=== PATIENT | male | born 1970 | race Caucasian/White ===

== ENCOUNTER 2020-02-08 12:08 | Emergency (ER) | payer OTHER ==
--- NOTE | 2020-02-08 13:50 | ER Document Report ---
ED Medical Screen (RME) - General Stated Complaint: HAND NUMBNESS/SWELLING Time Seen by Provider: 02/08/20 13:30 Mode of Arrival: Ambulatory Information source: Patient - HPI Notes: Patient is a 49 y/o male who present with right hand weakness and numbness that began yesterday morning. Patient reports intermittent hand pain and swelling over the 2nd MCP for the past couple of months that has been achy and sharp in nature. He states he had full function of his hand until he woke up on Saturday morning. He currently denies any pain but cannot lift his hand or grasp anything. He denies any numbness or weakness to any other extremities and denies any facial droop, headache, or chest pain. He denies any recent injury. Physical Exam - Vital signs Vitals: Temp Pulse Resp BP Pulse Ox 98.9 F 81 20 159/95 H 96 02/08/20 12:28 02/08/20 12:28 02/08/20 12:28 02/08/20 12:28 02/08/20 12:28 - Extremities Notes: 2/5 strength to the right hand and wrist. Passive ROM fully intact except for 2nd digit secondary to swelling and pain. No active ROM to the right wrist or h and. No erythema or warmth noted to the right hand. Palpable radial pulse with good cap refill. - Neurological Notes: CN VII normal with no facial droop noted. Normal gait. Course - Re-evaluation Re-evalutation: I have greeted and performed a rapid initial assessment of this patient. A comprehensive ED assessment and evaluation of the patient, analysis of test results and completion of medical decision making process will be conducted by an additional ED providers. - Vital Signs Vital signs: Temp Pulse Resp BP Pulse Ox 98.9 F 81 20 159/95 H 96 02/08/20 12:28 02/08/20 12:28 02/08/20 12:28 02/08/20 12:28 02/08/20 12:28
[2020-02-08 14:27] LABS: ABSOLUTE EOSINOPHILS # (AUTO) 0.1 10^3/uL (0.0-0.6); ABSOLUTE LYMPHOCYTES (AUTO) 1.3 10^3/uL (0.5-4.7); ABSOLUTE MONOCYTES (AUTO) 0.6 10^3/uL (0.1-1.4); ABSOLUTE NEUT (AUTO) 4.3 10^3/uL (1.7-8.2); BASOPHILS % (AUTO) 0.5 % (0-2); EOSINOPHILS % (AUTO) 1.5 % (0-6); HEMATOCRIT 42.2 % (37.9-51.0); HEMOGLOBIN 14.6 g/dL (13.5-17.0); MEAN CORPUSCULAR HEMOGLOBIN 31.5 pg (27.0-33.4); MEAN CORPUSCULAR HGB CONC 34.6 g/dL (32.0-36.0); MEAN CORPUSCULAR VOLUME 91 fl (80-97); MONOCYTES % (AUTO) 8.9 % (3-13); PLATELET COUNT 224 10^3/uL (150-450); RED BLOOD COUNT 4.64 10^6/uL (4.35-5.55); RED CELL DISTRIBUTION WIDTH 13.2 % (11.5-14.0); SEGMENTED NEUTROPHILS % (AUTO) 68.1 % (42-78); TOTAL CELLS COUNTED % (AUTO) 100 %; WHITE BLOOD COUNT 6.3 10^3/uL (4.0-10.5)
--- NOTE | 2020-02-08 14:36 | RADIOLOGY REPORT (SQ) ---
EXAM DESCRIPTION: HAND RIGHT 3 VIEWS IMAGES COMPLETED DATE/TIME: 02/08/2020 2:20 pm REASON FOR STUDY: right hand weakness and swelling COMPARISON: None. EXAM PARAMETERS: NUMBER OF VIEWS: Three views. TECHNIQUE: AP, lateral and oblique radiographic images acquired of the right hand. LIMITATIONS: None. FINDINGS: MINERALIZATION: Normal. BONES: Contour deformity involving the head of the second metacarpal bone. Diffuse ground-glass scl erotic appearance to the left second metacarpal bone with surrounding asymmetric soft tissue swelling . Mild smooth periosteal reaction is noted. No acute fracture. JOINTS: No effusions. SOFT TISSUES: No soft tissue swelling. No foreign body. OTHER: No other significant finding. IMPRESSION: 1. Abnormal appearance to the second metacarpal bone as above. Soft tissue swelling. These findings may be on the basis of inflammatory/infectious changes with the possibility of other u nderlying pathology not entirely excluded. Correlation suggested and additional imaging. TECHNICAL DOCUMENTATION: JOB ID: [id number] 2010 [employer]- All Rights Reserved Reading location - IP/workstation name: [email or web address]
[2020-02-08 14:41] LABS: ALBUMIN 4.6 g/dL (3.5-5.0); ALKALINE PHOSPHATASE 90 U/L (38-126); ANION GAP 11 (5-19); ASPARTATE AMINO TRANSFERASE 31 U/L (17-59); BILIRUBIN,TOTAL 0.4 mg/dL (0.2-1.3); BLOOD UREA NITROGEN 13 mg/dL (7-20); CARBON DIOXIDE 24 mmol/L (22-30); CHLORIDE 103 mmol/L (98-107); GLUCOSE 101 mg/dL (75-110); POTASSIUM 4.3 mmol/L (3.6-5.0); TOTAL PROTEIN 8.1 g/dL (6.3-8.2)
--- NOTE | 2020-02-08 21:12 | ER Document Report ---
ED General - General Stated Complaint: HAND NUMBNESS/SWELLING Time Seen by Provider: 02/08/20 13:30 Mode of Arrival: Ambulatory Information source: Patient Notes: ED Medical Screen ([facility] - General Stated Complaint: HAND NUMBNESS/SWELLING Time Seen by Provider: 02/08/20 13:30 Mode of Arrival: Ambulatory Information source: Patient - HPI Notes: Patient is a 49 y/o male who present with right hand weakness and numbness that began yesterday morning. Patient reports intermittent hand pain and swelling over the 2nd MCP for the past couple of months that has been achy and sharp in nature. He states he had full function of his hand until he woke up on Saturday morning. He currently denies any pain but cannot lift his hand or grasp anyth ing. He denies any numbness or weakness to any other extremities and denies any facial droop, headache, or chest pain. He denies any recent injury. MY NOTES 49-year-old male arrives with chief complaint of right hand weakness with numbness x36 hours. Patient awoke yesterday morning with swollen right hand with pain around the dorsum of his hand and right elbow and right shoulder. He refuses any x-rays to his right shoulder or elbow. He just wants his hand fixed. He denies any history of gout and all family members are except for him. He does not smoke but does drink a lot of whiskey. He denies pain in his arm over a chair causing wrist drop. He does definitely have wrist drop at this time. 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 Left hand is within normal limits. He refuses any CT of head because he denies any headache or any visual problems or any other neurological problem except for his right wrist drop. X-ray reveals a lesion of his second metatarsal. He advises nursing staff he does not want a narcotic but would like some Aleve. 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 He is off work until Saturday. TRAVEL OUTSIDE OF THE [place] IN LAST 30 DAYS: No - HPI Onset: Other - yesterday am Onset/Duration: Sudden, Persistent, Worse Quality of pain: Achy Severity: Moderate Pain Level: 3 Associated symptoms: Weakness Exacerbated by: Movement Relieved by: Denies Similar symptoms previously: No Recently seen / treated by doctor: No Past Medical History - General Information source: Patient - Social History Smoking Status: Never Smoker Cigarette use (# per day): No Chew tobacco use (# tins/day): No Smoking Education Provided: No Frequency of alcohol use: Occasional - whiskey Drug Abuse: None Lives with: Alone Family History: Reviewed & Not Pertinent Patient has suicidal ideation: No Patient has homicidal ideation: No Review of Systems - Review of Systems Constitutional: No symptoms reported EENT: No symptoms reported Cardiovascular: No symptoms reported Respiratory: No symptoms reported Gastrointestinal: No symptoms reported Genitourinary: No symptoms reported Male Genitourinary: No symptoms reported Musculoskeletal: No symptoms reported Skin: No symptoms reported Hematologic/Lymphatic: No symptoms reported Neurological/Psychological: No symptoms reported Physical Exam - Vital signs Vitals: Temp Pulse Resp BP Pulse Ox 98.9 F 81 20 159/95 H 96 02/08/20 12:28 02/08/20 12:28 02/08/20 12:28 02/08/20 12:28 02/08/20 12:28 Interpretation: Normal - General General appearance: Appears well, Alert - HEENT Head: Normocephalic, Atraumatic Eyes: Normal Pupils: PERRL - Respiratory Respiratory status: No respiratory distress Chest status: Nontender Breath sounds: Normal Chest palpation: Normal - Cardiovascular Rhythm: Regular Heart sounds: Normal auscultation Murmur: No - Abdominal Inspection: Normal Distension: No distension Bowel sounds: Normal Tenderness: Nontender Organomegaly: No organomegaly - Rectal Prostate: Other - deferred - Genitourinary Scrotum: Other - deferred - Back Back: Normal, Nontender - Extremities General upper extremity: Tender, Edema, Other - Diffuse Right hand with edema and also tenderness of the dorsum of the second metatarsal proximal bone and patient has right wrist drop. Positive flexion and unable to perform hitchhiker sign and minimally able to touch thumb to fifth little finger. He is unable to make a gun sign General lower extremity: Normal inspection, Nontender, Normal color, Normal ROM, Normal temperature, Normal weight bearing. No: Cm's sign - Neurological Neuro grossly intact: Yes Cognition: Normal Orientation: AAOx4 Lacey Coma Scale Eye Opening: Spontaneous Turner Coma Scale Verbal: Oriented Lacey Coma Scale Motor: Obeys Commands Lacey Coma Scale Total: 15 Speech: Normal Motor strength normal: LUE, RUE, LLE, RLE Sensory: Normal - Psychological Associated symptoms: Normal affect, Normal mood - Skin Skin Temperature: Warm Skin Moisture: Dry Skin Color: Normal Course - Vital Signs Vital signs: Temp Pulse Resp BP Pulse Ox 98.6 F 72 18 154/94 H 97 02/08/20 18:28 02/08/20 18:28 02/08/20 18:28 02/08/20 18:28 02/08/20 18:28 - Laboratory Result Diagrams: 02/08/20 14:00 02/08/20 14:00 - Diagnostic Test Radiology reviewed: Reports reviewed Critical Care Note - Critical Care Note Comments: I spoke with Dr. Benedict Palacios at approximately 2220 and he advises he looked at the x-ray and saw the lesion at the plantar metatarsal and advises that the patient should follow-up with him in office. May need MRI in the near future. Nursing staff applied a Beto wrap and a splint and a sling. Discharge - Discharge Clinical Impression: Wrist drop, right wrist, Lesion of bone of right hand, Anxiety Condition: Good Disposition: HOME, SELF-CARE Additional Instructions: Follow-up with Dr. Benedict Palacios orthopedics in office. Take medicines as directed and may take Aleve [id number] as needed. Off work as directed. Avoid using the right hand at all cost. Try to keep right hand elevated in a sling and in a cock up splint. As I spoke with you have a lesion on x-ray which needs to be evaluated further by orthopedics. You cannot use your right hand at your job. Prescriptions: Etodolac [Lodine] 400 mg PO BID PRN 7 Days #15 tablet PRN Reason: Pain Scale Of 1 Forms: Return to Work Referrals: GENET PALACIOS MD [ACTIVE STAFF] - Follow up as needed
[2020-02-08] MEDS ORDERED: NAPROXEN 375 MG TABLET PO ONE (21:30)
[2020-02-08] MEDS ORDERED: NAPROXEN 375 MG TABLET ONE (22:02)
[2020-02-08] MEDS ORDERED: HYDROCODONE/ACETAMINOPHEN 5-325 MG (6 TAB/ER DISP) PO PRN (22:17)
[2020-02-08] MEDS ORDERED: LORAZEPAM 0.5 MG TABLET PO ONE (22:17)
[2020-02-08 23:12] VITALS: BP 146/87
== END 2020-02-08 23:14 | disposition home or self-care (01) ==
LOC: ER 12:08
DX: M21.331 Wrist drop, right wrist (principal); M89.8X4 Other specified disorders of bone, hand; F41.9 Anxiety disorder, unspecified; R20.0 Anesthesia of skin; M62.81 Muscle weakness (generalized); M79.641 Pain in right hand; M25.521 Pain in right elbow; M25.511 Pain in right shoulder; R60.0 Localized edema
CPT/HCPCS: 99284; 36415; 84550; 85025; 80053; 73130; J3490